=== PATIENT | female | born 1980 | race Hispanic/Latino ===

== ENCOUNTER 2019-01-04 01:27 | Emergency (ER) | payer OTHER ==
[~2019-01-04] VITALS: Ht 170.2 cm; Wt 86.0 kg
[~2019-01-04 01:27] MED LIST: BENTYL10 MG PO; CIPRO500 MG OR; CIPROFLOXACN500 MG PO; COMBIVIR OR; FLEXERIL10 MG PO; KLONOPIN0.5 MG PO; LORTAB5 PO; NO CURRENT MEDS; PHENTERMINE30 MG OR; PRILOSEC40 MG PO; TYLENOL500 MG OR; ULTRAM50 M1 PO; ZOFRAN ODT4 MG OR
[2019-01-04 02:06] LABS: IMMATURE GRANULOCYTES 0.3 % (0.0-5.0); MEAN CORPUSCULAR HGB 26.3 pG CALC (26.0-32.0); MEAN CORPUSCULAR HGB CONC 32.4 g/L CALC (32.0-36.0); NEUT# 3.61 thou/uL (2.00-7.15); RED BLOOD COUNT 4.56 mill/uL (4.20-5.60); RED CELL DISTRI WIDTH 12.6 % (11.5-15.5)
[2019-01-04 02:07] LABS: MEAN CELL VOLUME 81.1 fL CALC (80.0-100.0)
[2019-01-04 02:11] LABS: ALBUMIN 4.7 g/dL (3.2-5.0); ALKALINE PHOSPHATASE 71 u/l (38-126); ANION GAP 18 (6-22 (CALC)); BILIRUBIN, TOTAL 0.2 mg/dL (0.0-1.4); BUN 10 mg/dL (7-17); BUN/CREATININE RATIO 14 (12-20 (CALC)); CARBON DIOXIDE 21 mmol/l (22-30); CHLORIDE 109 mmol/l (95-108); CREATININE 0.7 mg/dL (0.5-1.0); ETHYL ALCOHOL 166 mg/dl (0-30); GFR > 60 ML/MIN (>=60 (CALC)); GFR FOR AFR.AMER. > 60 ML/MIN (>=60 (CALC)); POTASSIUM 3.2 mmol/l (3.5-5.1); SGOT/AST 27 u/l (14-36); SODIUM 144 mmol/l (137-146)
[2019-01-04 02:13] LABS: TOTAL PROTEIN 8.6 g/dL (6.3-8.2)
[2019-01-04 03:40] LABS: URINE BILIRUBIN - DIPSTICK NEGATIVE (NEGATIVE); URINE BLOOD DIPSTICK NEGATIVE (NEGATIVE); URINE COLOR YELLOW; URINE GLUCOSE - DIPSTICK NEGATIVE (NEGATIVE); URINE KETONE NEGATIVE (NEGATIVE); URINE LEUK ESTERASE NEGATIVE (NEGATIVE); URINE NITRITE - DIPSTICK NEGATIVE (Negative); URINE PROTEIN - DIPSTICK NEGATIVE (NEG-TRACE); URINE UROBILINOGEN - DIPSTICK 0.2 E.U./dL (0.2)
[2019-01-04 03:43] LABS: BARBITURATES NEGATIVE (NEGATIVE); COCAINE NEGATIVE (NEGATIVE); METHADONE NEGATIVE (NEGATIVE); OXCYCODONE NEGATIVE (NEGATIVE); TETRAHYDROCANNABIONOL NEGATIVE (NEGATIVE); TRICYLIC ANTIDEPRESSANTS NEGATIVE (NEGATIVE)
[2019-01-04 05:46] VITALS: BP 107/57
== END 2019-01-04 05:46 | disposition home or self-care (01) | DRG 897 ==
LOC: ED 01:27
PROVIDERS: Emergency Medicine
DX: F10.129 Alcohol abuse with intoxication, unspecified (principal)

== ENCOUNTER 2022-06-29 02:06 | Emergency (ER) | payer OTHER ==
[~2022-06-29] VITALS: Ht 170.2 cm; Wt 80.0 kg
[2022-06-29] MEDS ORDERED: NAPROXEN500 MG PO (03:45)
[2022-06-29 03:56] VITALS: BP 121/70
== END 2022-06-29 04:04 | disposition home or self-care (01) | DRG 563 ==
LOC: ED 02:06
DX: S63.502A Unspecified sprain of left wrist, initial encounter (principal); X50.1XXA Overexertion from prolonged static or awkward postures, initial encounter